=== PATIENT | female | born 1950 | race Two or more races ===

== ENCOUNTER 2021-04-06 12:22 | Inpatient (IN) | payer BC, OTHER ==
[~2021-04-06] VITALS: Ht 157.5 cm; Wt 65.1 kg
[2021-04-06] MEDS ORDERED: MORPHINE SULFATE 4 MG/ML SYR/VIAL IV ONE (12:30)
[2021-04-06] MEDS ORDERED: SODIUM CHLORIDE 0.9% 500 ML IVB ONE (12:30)
[2021-04-06] MEDS ORDERED: ONDANSETRON HCL 4 MG/2 ML VIAL IV ONE (12:30)
[2021-04-06 13:35] LABS: Basophils # (auto) 0.2 10 ^3/uL (0-0.2); Basophils % (auto) 2.5 % (0.0-2.0); Eosinophils # (auto) 0.3 10 ^3/uL (0-0.8); Eosinophils % (auto) 3.6 % (0.0-7.0); Hematocrit 41.9 % (36.0-46.0); Hemoglobin 14.4 g/dL (12.2-16.2); Lymphocytes # (auto) 1.7 10 ^3/uL (0.4-5.4); Lymphocytes % (auto) 24.2 % (10.0-50.0); Mean Corpuscular Hgb Conc. 34.4 g/dL (32.0-36.0); Mean Corpuscular Volume 92.9 fL (80.0-100.0); Monocytes # (auto) 0.5 10 ^3/uL (0-1.3); Monocytes % (auto) 6.6 % (0.0-12.0); Neutrophils # (auto) 4.5 10 ^3/uL (1.6-8.6); Neutrophils % (auto) 63.1 % (37.0-80.0); Red Blood Cells 4.51 10^6/uL (4.0-5.20); White Blood Cell 7.1 10^3/uL (4.4-10.8)
[2021-04-06 14:00] LABS: Albumin 3.7 g/dL (3.4-5.0); BUN/Creatinine Ratio 21.3; Bilirubin, Total 0.5 mg/dL (0.2-1.0); Calcium 8.9 mg/dL (8.5-10.1); Potassium 4.1 mmol/L (3.5-5.1); Total Protein 6.7 g/dL (6.4-8.2)
[2021-04-06] MEDS ORDERED: MORPHINE SULFATE INJECTION 2 MG/ML SYRG IV ONE (15:00)
[2021-04-06 17:02] LABS: Urine Bacteria NONE SEEN /hpf (None Seen); Urine Blood Negative /uL (Negative); Urine Specific Gravity 1.005 (1.001-1.035); Urine WBC 3 /hpf (0 - 5)
[2021-04-06] MEDS ORDERED: MORPHINE SULFATE 4 MG/ML SYR/VIAL IV PRN (20:45)
[2021-04-06] MEDS ORDERED: MORPHINE SULFATE INJECTION 2 MG/ML SYRG IV PRN (20:45)
[2021-04-06] MEDS ORDERED: NITROGLYCERIN 0.4 MG SL TAB SL PRN (20:45)
[2021-04-06] MEDS ORDERED: TEMAZEPAM 15 MG CAP PO PRN (20:45)
[2021-04-06] MEDS ORDERED: ONDANSETRON HCL 4 MG/2 ML VIAL IV PRN (20:45)
[2021-04-06] MEDS ORDERED: IOHEXOL 300 MG/ML 100ML BOTTLE IJ ONE (21:32)
[2021-04-06 23:39] VITALS: BP 162/74
[2021-04-07] VITALS (7 sets, daily range): BP systolic 101–179; BP diastolic 48–82
[2021-04-07] MEDS: ACETAMINOPHEN 325 MG TAB PO PRN (00:04)
[2021-04-07] MEDS: ENOXAPARIN SOD 40 MG/0.4 ML SYRINGE SC SCH (09:00)
[2021-04-07] MEDS ORDERED: PROMETHAZINE HCL 25 MG/ML 1ML IM ONE (11:15)
[2021-04-07] MEDS ORDERED: PROMETHAZINE HCL 25 MG/ML 1ML ONE (11:28)
[2021-04-07] MEDS ORDERED: ALBUTEROL SULF 2.5 MG/0.5ML(0.5%) NEB SOLN NEB PRN (12:15)
[2021-04-07] MEDS ORDERED: LACTULOSE 20Gm/30ML SOLN PO ONE (12:30)
[2021-04-07] MEDS ORDERED: HYOSCYAMINE SULF 0.125 MG ODT TAB PO PRN (14:00)
[2021-04-07] MEDS ORDERED: LACTULOSE 20Gm/30ML SOLN PO PRN (14:00)
[2021-04-07] MEDS ORDERED: GOLYTELY 4L KIT PO ONE (15:45)
[2021-04-07] MEDS: PANTOPRAZOLE 40 MG/10 ML VIAL INJ IV SCH (22:07)
[2021-04-08] VITALS (8 sets, daily range): BP systolic 99–171; BP diastolic 46–74
[2021-04-08] MEDS ORDERED: diphenhdrAMINE HCL 50 MG/1 ML VL ONE (08:29)
[2021-04-08 08:32] LABS: INR 1.09 (0.9-1.15)
[2021-04-08] MEDS: PANTOPRAZOLE 40 MG/10 ML VIAL INJ IV SCH ×2 (10:00→21:10)
[2021-04-08] MEDS ORDERED: cloNIDine HCL 0.1 MG TAB PO PRN (11:45)
[2021-04-08] MEDS: MIDAZOLAM HCL 5 MG/ML-1ML VIAL ONE ×2 (12:38→12:43)
[2021-04-08] MEDS: fentaNYL CITRATE 100 MCG/2 ML VL ONE ×2 (12:38→12:43)
[2021-04-08] MEDS: ENOXAPARIN SOD 40 MG/0.4 ML SYRINGE SC SCH (13:28)
[2021-04-08] MEDS: ACETAMINOPHEN 325 MG TAB PO PRN (21:10)
[2021-04-09 05:00] VITALS: BP 130/49
[2021-04-09] MEDS ORDERED: PANT40T PO (08:49)
[2021-04-09] MEDS ORDERED: HYOS0.1250 PO (08:49)
[2021-04-09 09:00] VITALS: BP 132/53
[2021-04-09] MEDS: ENOXAPARIN SOD 40 MG/0.4 ML SYRINGE SC SCH (10:11)
[2021-04-09] MEDS: PANTOPRAZOLE 40 MG/10 ML VIAL INJ IV SCH (10:11)
[2021-04-09] MEDS: ACETAMINOPHEN 325 MG TAB PO PRN (10:12)
== END 2021-04-09 12:45 | disposition home or self-care (01) | DRG 395 ==
LOC: ER 12:22 → EDBD 12:22 → OVERFLOW 20:37 → CENTRAL 22:45
PROVIDERS: ADMIT Nurse Practitioner; ATTEND Family Medicine
PROC: 0DBL8ZX Excision of Transverse Colon, Via Natural or Artificial Opening Endoscopic, Diagnostic (ICD-10-PCS; principal; 2021-04-08 12:35)
DX: K63.5 Polyp of colon (principal); G43.D1 Abdominal migraine, intractable; K64.8 Other hemorrhoids; J45.909 Unspecified asthma, uncomplicated; K44.9 Diaphragmatic hernia without obstruction or gangrene; R53.81 Other malaise; Z20.822 Contact with and (suspected) exposure to COVID-19
CPT/HCPCS: 36415; 71250; 72131; 74176; 74177; 76705; 80053; 81001; 82150; 83690; 84484; 85025; 85610; 87426; 93005; 96361; 96374; 96375; C9113; G0378; J2250; J2405